=== PATIENT | female | born 1955 | race Caucasian/White ===

== ENCOUNTER → 2016-06-06 | Outpatient (REF) | payer BC ==
[~2016-06-06] MED LIST: ASPI81TA85 PO; AUGM500T34 PO; AUGM875T27 PO; EXCETAB80 PO; OCEA0.65; OMEP40CA2 PO; PRIL20CA PO; TYLE325T5 PO; ZEST10TA4 PO; ZOCO5TAB PO
== END ==
LOC: M SFHCLERA 11:18
PROVIDERS: ATTEND Family Medicine
DX: Z12.4 Encounter for screening for malignant neoplasm of cervix (principal); R87.5 Abnormal microbiological findings in specimens from female genital organs

== ENCOUNTER → 2016-09-08 | Outpatient (CLI) | payer BC ==
--- NOTE | 2016-09-08 17:50 | REP ---
ORBIT COMPLETE: REASON: Contusion on the left. PRIORS: None. Limited plain film examination of the orbits shows no evidence of an acute fracture or destructive osseous lesion. It should be stated with certainty that CT is a gold standard for imaging facial bone fractures and should be considered at this time. Signed by Pk Mike DO 09/08/2016 07:10 P
--- NOTE | 2016-09-08 17:55 | REP ---
LEFT HAND: REASON: Swelling. No trauma. Mild to moderate degenerative changes are seen throughout the Intradigital joints. Small marginal osteophytes are seen involving the DIP joints throughout the digits and PIP joints of digits 4 and 5. There is a flake like radiodensity adjacent and proximal to the medial base of the middle phalanx of the 3rd digit without associated soft-tissue swelling. This might represent chronic change but should be correlated clinically for point tenderness. IMPRESSION:Chronic changes and suspect chronic changes as described above. Signed by Pk Mike DO 09/08/2016 07:11 P
== END ==
LOC: M LRY 16:47
PROVIDERS: ATTEND Physician Assistant
DX: M79.89 Other specified soft tissue disorders (principal); S05.12XA Contusion of eyeball and orbital tissues, left eye, initial encounter; X58.XXXA Exposure to other specified factors, initial encounter; Y93.9 Activity, unspecified; Y92.9 Unspecified place or not applicable; Y99.8 Other external cause status

== ENCOUNTER → 2016-09-13 | Outpatient (CLI) | payer BC ==
--- NOTE | 2016-09-13 11:16 | REPMRS ---
Patient History The patient states she has not had a clinical breast exam in over a year. Patient is postmenopausal and had first child at age 33. No known family history of cancer. Digital Mammo Screening Bilat: September 13, 2016 - Exam #: [id number] Bilateral CC and MLO view(s) were taken. Technologist: Nicolle Armendariz, Technologist No prior studies available for comparison. FINDINGS: There are scattered fibroglandular densities. There is no evidence of dominant mass, architectural distortion, or clustered microcalcification typical of malignancy. ASSESSMENT: BI-RADS/ACR category 1 mammogram. Negative. Recommendation Routine screening mammogram of both breasts in 1 year (for women over age 40). This mammogram was interpreted with the aid of an FDA-approved computer-aided dectection system. Electronically Signed By: Evelio Mathis MD 09/13/16 [id number]
== END ==
LOC: M RAD 09:25
PROVIDERS: ATTEND Family Medicine
DX: Z12.31 Encounter for screening mammogram for malignant neoplasm of breast (principal)

== ENCOUNTER → 2016-11-10 | Outpatient (CLI) | payer BC, SELFPAY ==
--- NOTE | 2016-11-10 11:58 | REP ---
Low-dose lung screening CT without IV contrast: Scan is performed without IV contrast. Images are presented at lung windowing only. There are no nodules or masses. There are no infiltrates or effusions. There are occasional bulla, predominantly subpleural. Impression: Category 1 low-dose screening lung CT. The recommendation is for annual low-dose screening lung CT surveillance. Signed by Jonn Rodriguez MD 11/10/2016 11:50 A
== END ==
LOC: M RAD 10:59
PROVIDERS: ATTEND Family Medicine
DX: Z12.2 Encounter for screening for malignant neoplasm of respiratory organs (principal); F17.200 Nicotine dependence, unspecified, uncomplicated

== ENCOUNTER → 2017-02-19 | Outpatient (REF) | payer BC ==
[~2017-02-19] MED LIST changes: +AMLO10TA2 PO; +ATOR40TA75 PO; +CITA20TA4 PO; +COLA100C5 PO; +FLON1SPR; +OMEP20CA3 PO; +OXYC1TAB23 PO
[2017-02-19 11:56] LABS: BASO # 0.1 10^3/uL (0.0-0.2); BASO % 0.9 % (0.0-1.0); EOS # 0.2 10^3/uL (0.0-0.50); EOS % 2.2 % (0.0-3.0); LYMPH # 1.7 10^3/uL (1.5-4.5); LYMPH % 21.5 % (24.0-44.0); MEAN CORPUSCULAR HEMOGLOBIN 32.1 pg (27.0-33.0); MEAN CORPUSCULAR HGB CONC 33.9 g/dl (32.0-36.5); MEAN CORPUSCULAR VOLUME 94.8 fl (80.0-96.0); MONO # 0.7 10^3/uL (0.0-0.8); MONO % 8.4 % (0.0-5.0); NEUTROPHILS # 5.1 10^3/uL (1.8-7.7); NEUTROPHILS % 66.5 % (36.0-66.0); PLATELET COUNT, AUTOMATED 313 10^3/uL (150-450); RED CELL DISTRIBUTION WIDTH 12.8 % (11.5-14.5); WHITE BLOOD COUNT 7.7 10^3/uL (4.0-10.0)
[2017-02-19 12:26] LABS: ALBUMIN 3.8 GM/DL (3.2-5.2); ALBUMIN/GLOBULIN RATIO 1.31 (1.00-1.93); ALKALINE PHOSPHATASE 111 U/L (45-117); ALT/SGPT 28 U/L (12-78); ANION GAP 9 MEQ/L (8-16); AST/SGOT 14 U/L (15-37); BILIRUBIN,TOTAL 0.5 MG/DL (0.2-1.0); BLOOD UREA NITROGEN 17 MG/DL (7-18); CARBON DIOXIDE LEVEL 26 MEQ/L (21-32); CHLORIDE LEVEL 107 MEQ/L (98-107); CREATININE FOR GFR 0.67 MG/DL (0.55-1.02); FREE T4 1.01 NG/DL (0.76-1.46); GLOMERULAR FILTRATION RATE > 60.0 (>51); GLUCOSE, FASTING 93 MG/DL (70-105); POTASSIUM SERUM 3.8 MEQ/L (3.5-5.1); SODIUM LEVEL 142 MEQ/L (136-145); TOTAL PROTEIN 6.7 GM/DL (6.4-8.2)
== END ==
LOC: M SFHCLERA 09:51
PROVIDERS: ATTEND Family Medicine
DX: R53.83 Other fatigue (principal)

== ENCOUNTER 2017-03-16 08:14 | Day surgery (SDC) | payer BC ==
[~2017-03-16] VITALS: Ht 157.5 cm; Wt 47.2 kg
[2017-03-16] VITALS (7 sets, daily range): BP systolic 112–146; BP diastolic 53–74
[~2017-03-16 08:14] MED LIST changes: -COLA100C5 PO; -OXYC1TAB23 PO
[2017-03-16] MEDS ORDERED: VASOPRESSIN INJ 20 UNITS/ML VIAL As Ordered ONE (08:29)
[2017-03-16] MEDS ORDERED: LR 1,000 ML IV SCH ×2 (08:30→13:45)
[2017-03-16 08:49] LABS: MEAN CORPUSCULAR HEMOGLOBIN 31.9 pg (27.0-33.0); MEAN CORPUSCULAR HGB CONC 33.9 g/dl (32.0-36.5); MEAN CORPUSCULAR VOLUME 94.2 fl (80.0-96.0); PLATELET COUNT, AUTOMATED 269 10^3/uL (150-450); RED CELL DISTRIBUTION WIDTH 12.9 % (11.5-14.5); WHITE BLOOD COUNT 6.9 10^3/uL (4.0-10.0)
[2017-03-16] MEDS ORDERED: fentaNYL 250 MCG/5 ML INJECTION (J3010) As Ordered ONE (09:31)
[2017-03-16] MEDS ORDERED: MIDAZOLAM INJ 2 MG/2 ML VIAL (J2250) As Ordered ONE (09:31)
[2017-03-16] MEDS ORDERED: KETAMINE HCL 200 MG/20 ML VIAL As Ordered ONE ×2 (09:31→12:45)
[2017-03-16] MEDS ORDERED: METHYLENE BLUE 0.5% (5MG/ML) 10 ML AMP (PROVAYBLUE)(Q9968 PER 1MG) As Ordered ONE (10:45)
[2017-03-16] MEDS ORDERED: GLYCOPYRROLATE INJ 0.2 MG/ML 2 ML VIAL As Ordered ONE (12:46)
[2017-03-16] MEDS ORDERED: dexameTHASONE 4 MG/ML 1ML VIAL (J1100) As Ordered ONE (12:46)
[2017-03-16] MEDS ORDERED: ePHEDrine SULFATE 25 MG/5 ML(5MG/ML) SYRINGE As Ordered ONE (12:46)
[2017-03-16] MEDS ORDERED: PROPOFOL 200 MG/20 ML VIAL As Ordered ONE (12:46)
[2017-03-16] MEDS ORDERED: ONDANSETRON 4MG/2ML VIAL (J2405) As Ordered ONE (12:46)
[2017-03-16] MEDS ORDERED: KETOROLAC 60 MG/2 ML VIAL (J1885) As Ordered ONE (12:46)
[2017-03-16] MEDS ORDERED: NEOSTIGMINE 10 MG/10 ML VIAL (J2710) As Ordered ONE (12:46)
[2017-03-16] MEDS ORDERED: ROCURONIUM BROMIDE 50 MG/5 ML VIAL/SYRINGE As Ordered ONE (12:46)
[2017-03-16] MEDS ORDERED: FUROSEMIDE 100 MG/10 ML VIAL (J1940) As Ordered ONE (12:47)
[2017-03-16] MEDS ORDERED: fentaNYL 100 MCG/2 ML INJECTION (J3010) IV PRN (13:45)
[2017-03-16] MEDS ORDERED: PERCOCET 5MG/325MG TAB PO PRN ×3 (13:45→14:00)
--- NOTE | 2017-03-16 13:59 | REP ---
KUB ONE VIEW: HISTORY: Foreign body. The upper abdomen is not seen. A small amount of air is present in small and large intestine. There are no air fluid levels or dilated loops of intestine. There is no pneumoperitoneum. Several small radiopaque densities consistent with tablets are present in the abdomen. There is no metallic foreign body. IMPRESSION: Nonspecific bowel gas pattern. Signed by Rashid Sales MD 03/16/2017 02:08 P
[2017-03-16] MEDS ORDERED: ONDANSETRON 4MG/2ML VIAL (J2405) IV PRN (14:00)
[2017-03-16] MEDS ORDERED: MORPHINE 4 MG/ML 1ML SYRINGE IV PRN (14:00)
[2017-03-16] MEDS ORDERED: OXYC1TAB23 PO (15:54)
[2017-03-16] MEDS ORDERED: KETOROLAC 30 MG/ML VIAL (J1885) IV PRN (19:00)
[2017-03-16] MEDS: DOCUSATE SODIUM 100 MG CAP PO SCH (20:06)
--- NOTE | 2017-03-16 21:07 | RO ---
DATE OF PROCEDURE: 03/16/2017 PREPROCEDURE DIAGNOSES: Symptomatic pelvic prolapse. Uterine prolapse. Cystocele. POSTPROCEDURE DIAGNOSES: Symptomatic pelvic prolapse. Uterine prolapse. Cystocele. PROCEDURE: Total vaginal hysterotomy. Anterior vaginal repair, Mei culdoplasty, cystoscopy. SURGEON: Rashid Mcintosh MD INSTRUMENT OPERATOR: Yessenia Georges MD ANESTHESIA: General endotracheal. ESTIMATED BLOOD LOSS: 100 mL. URINE OUTPUT: 200 mL. FLUIDS: 1900 mL. FINDINGS: Small uterus with no adhesions. Normal adnexa. Grade 3 uterine prolapse. Grade 3 bladder prolapse. DESCRIPTION OF PROCEDURE: Operative summary: The patient was taken to the operating room where general endotracheal anesthesia was induced. She was prepped and draped in a sterile fashion in the dorsal lithotomy position. The anterior and posterior lips of the cervix were grasped with a tenaculum. Vaginal mucosa overlying the cervix was circumscribed with scalpel. The anterior vaginal mucosa was dissected off the cervix with a combination of blunt and sharp dissection. The anterior cul-de-sac was entered sharply. Posterior cul-de-sac was entered sharply. Uterosacral ligaments were grasped with Yumi clamps, incised and suture ligated. A series of bites were taken parallel to the body of the uterus. Each successive bite was incised and suture ligated. Specimen including the uterus and cervix was removed. Allis clamps were used to grasp the anterior vaginal cuff. Incision was made in the midline. The bladder was dissected off the vaginal mucosa with sharp dissection. Linear incision created in the anterior vagina. Plicating sutures were placed in the lateral margins of the bladder. Two successive sutures were placed. Mei culdoplasty was performed in the following fashion. #0 Vicryl was placed through the posterior vaginal cuff. The left uterosacral ligament was grasped with a suture. The posterior peritoneum was incorporated and then the right uterosacral ligament was incorporated. This exited through the vagina adjacent to the entry point. Vaginal cuff was closed with #0 Vicryl in a running fashion. Mei suture was tied into place. Cystoscopy was performed using a 70 degrees cystoscope. The patient received Methylene blue dye intravenously. Ureteral jets could not be confirmed on either side. There was concern for kinking of the ureters particularly on the right side. It appeared there was probably a jet on the left side. Decision was made to take down the Mei's culdoplasty suture and the vaginal cuff and the anterior repair. Once this was removed, bilateral ureteral jets were identified. The anterior repair was again closed, just not as tightly as before with two interrupted sutures of #0 Vicryl. Excess vaginal mucosa had already been excised and the vaginal cuff was closed in a running fashion. Mei culdoplasty suture was also repeated in the same fashion as described above, just not placed as high as previously. The vaginal cuff was closed and the Mei's stitch was tied into place. Cystoscopy was again performed. Bilateral ureteral jets were identified. All instruments were removed and Hernandez catheter was replaced. Sponge, instrument and needle counts were correct. The patient was extubated and went to recovery.
[2017-03-17] VITALS: BP 130/68
[2017-03-17 04:00] VITALS: BP 130/73
[2017-03-17 06:13] LABS: MEAN CORPUSCULAR HEMOGLOBIN 31.6 pg (27.0-33.0); MEAN CORPUSCULAR HGB CONC 33.1 g/dl (32.0-36.5); MEAN CORPUSCULAR VOLUME 95.6 fl (80.0-96.0); PLATELET COUNT, AUTOMATED 282 10^3/uL (150-450); RED CELL DISTRIBUTION WIDTH 12.9 % (11.5-14.5); WHITE BLOOD COUNT 13.5 10^3/uL (4.0-10.0)
[2017-03-17] MEDS ORDERED: COLA100C5 PO (08:53)
[2017-03-17] MEDS: DOCUSATE SODIUM 100 MG CAP PO SCH (09:10)
== END 2017-03-17 09:20 | disposition home or self-care (01) ==
LOC: M SDC 08:14 → M PED 14:55 → M SDC 03-17 09:20
PROVIDERS: ATTEND Specialist
DX: N81.4 Uterovaginal prolapse, unspecified (principal); N81.10 Cystocele, unspecified; K21.9 Gastro-esophageal reflux disease without esophagitis; I10 Essential (primary) hypertension; E78.00 Pure hypercholesterolemia, unspecified; M12.9 Arthropathy, unspecified; F41.9 Anxiety disorder, unspecified; F32.9 Major depressive disorder, single episode, unspecified; R32 Unspecified urinary incontinence; Z79.899 Other long term (current) drug therapy; Z79.82 Long term (current) use of aspirin; Z86.73 Personal history of transient ischemic attack (TIA), and cerebral infarction without residual deficits; Z72.0 Tobacco use
CPT/HCPCS: 36415; 57240; 57283; 58290; 74000; 85027; 86850; 86900; 86901; 88305; 96374; 96375; J0690; J1100; J1885; J1940; J2250; J2405; J2710; J3010; Q9968

== ENCOUNTER → 2017-11-26 | Outpatient (REF) | payer OTHER, MEDICAID ==
[2017-11-26 17:22] LABS: BASO # 0.1 10^3/uL (0.0-0.2); BASO % 0.8 % (0.0-1.0); EOS # 0.2 10^3/uL (0.0-0.50); EOS % 3.1 % (0.0-3.0); HEMATOCRIT 38.2 % (36.0-47.0); HEMOGLOBIN 13.1 g/dl (12.0-15.5); IMMATURE GRANULOCYTE % 0.5 % (0-3.0); LYMPH # 1.9 10^3/uL (1.5-4.5); LYMPH % 25.1 % (24.0-44.0); MEAN CORPUSCULAR HEMOGLOBIN 32.3 pg (27.0-33.0); MEAN CORPUSCULAR HGB CONC 34.3 g/dl (32.0-36.5); MEAN CORPUSCULAR VOLUME 94.1 fl (80.0-96.0); MONO # 0.8 10^3/uL (0.0-0.8); MONO % 10.6 % (0.0-5.0); NEUTROPHILS # 4.4 10^3/uL (1.8-7.7); NEUTROPHILS % 59.9 % (36.0-66.0); PLATELET COUNT, AUTOMATED 289 10^3/uL (150-450); RED BLOOD COUNT 4.06 10^6/uL (4.00-5.40); RED CELL DISTRIBUTION WIDTH 12.9 % (11.5-14.5); WHITE BLOOD COUNT 7.4 10^3/uL (4.0-10.0)
[2017-11-26 17:39] LABS: ESTIMATED AVERAGE GLUCOSE 114 MG/DL (60-110); HEMOGLOBIN A1c 5.6 %
[2017-11-26 18:38] LABS: VITAMIN B12 LEVEL 585 PG/ML
[2017-11-26 18:42] LABS: ALBUMIN 3.9 GM/DL (3.2-5.2); ALBUMIN/GLOBULIN RATIO 1.18 (1.00-1.93); ALKALINE PHOSPHATASE 133 U/L (45-117); ALT/SGPT 55 U/L (12-78); ANION GAP 8 MEQ/L (8-16); AST/SGOT 28 U/L (7-37); BILIRUBIN,TOTAL 0.5 MG/DL (0.2-1.0); BLOOD UREA NITROGEN 17 MG/DL (7-18); CALCIUM LEVEL 8.8 MG/DL (8.8-10.2); CARBON DIOXIDE LEVEL 25 MEQ/L (21-32); CHLORIDE LEVEL 108 MEQ/L (98-107); CREATININE FOR GFR 0.66 MG/DL (0.55-1.30); GLOMERULAR FILTRATION RATE > 60.0 (>45); GLUCOSE, FASTING 82 MG/DL (70-100); SODIUM LEVEL 141 MEQ/L (136-145); TOTAL PROTEIN 7.2 GM/DL (6.4-8.2)
== END ==
LOC: M SFHCLERA 14:57
DX: R26.9 Unspecified abnormalities of gait and mobility (principal); Z13.1 Encounter for screening for diabetes mellitus

== ENCOUNTER → 2017-12-13 | Outpatient (CLI) | payer MEDICAID, OTHER | LOC: M RAD 14:47 | DX: I72.0 Aneurysm of carotid artery (principal); I65.23 Occlusion and stenosis of bilateral carotid arteries | CPT/HCPCS: 93880 ==

== ENCOUNTER → 2017-12-24 | Outpatient (CLI) | payer OTHER | LOC: M RAD 07:40 | DX: Z12.2 Encounter for screening for malignant neoplasm of respiratory organs (principal); F17.200 Nicotine dependence, unspecified, uncomplicated; J43.9 Emphysema, unspecified | CPT/HCPCS: G0297 ==

== ENCOUNTER → 2018-01-08 | Outpatient (CLI) | payer OTHER | LOC: M RAD 13:08 | DX: I67.1 Cerebral aneurysm, nonruptured (principal) | CPT/HCPCS: 70544 ==

== ENCOUNTER 2018-02-28 09:15 | Day surgery (SDC) | payer OTHER ==
[2018-02-28] MEDS: NS 1,000 ML IV (07:00)
[2018-02-28] MEDS ORDERED: PROPOFOL 500 MG/50 ML VIAL As Ordered (10:14)
[2018-02-28] MEDS ORDERED: LIDOCAINE 2% INJ 100 MG/5 ML SDV (FOR ANES.) As Ordered (10:14)
[2018-02-28] MEDS ORDERED: fentaNYL 100 MCG/2 ML INJECTION (J3010) As Ordered (11:11)
== END 2018-02-28 12:44 | disposition home or self-care (01) ==
LOC: M OPP 09:15
DX: Z12.11 Encounter for screening for malignant neoplasm of colon (principal); D12.3 Benign neoplasm of transverse colon; D12.2 Benign neoplasm of ascending colon; D12.0 Benign neoplasm of cecum; K57.30 Diverticulosis of large intestine without perforation or abscess without bleeding; K64.8 Other hemorrhoids; R12 Heartburn; K22.8 Other specified diseases of esophagus; I10 Essential (primary) hypertension; I67.1 Cerebral aneurysm, nonruptured; E78.5 Hyperlipidemia, unspecified; K21.9 Gastro-esophageal reflux disease without esophagitis; Z86.69 Personal history of other diseases of the nervous system and sense organs; F17.210 Nicotine dependence, cigarettes, uncomplicated; Z79.82 Long term (current) use of aspirin; Z79.899 Other long term (current) drug therapy
CPT/HCPCS: 45385

== ENCOUNTER → 2019-01-31 | Outpatient (CLI) | payer OTHER ==
[~2019-01-31] MED LIST changes: +ACET1TAB55 PO; -AMLO10TA2 PO; +AMLO10TA5 PO; +CAFF200T PO; +CHAN1PAK13 PO; -CITA20TA4 PO; +CITA20TA6 PO; +COLA100C5 PO; -OMEP20CA3 PO; +OMEP20CA4 PO; +OXYC1TAB23 PO; +PANT40TA3 PO
--- NOTE | 2019-01-31 13:49 | REP ---
Clinical: Lung screening. History smoking. Comparison: 12/24/2017, 11/10/2016 Technique: Axial low-dose noncontrast images from the thoracic inlet to the upper abdomen using lung screening technique. Findings: The lung martin are well-aerated mild scattered chronic changes primarily involving the upper lung zones and medial right middle lobe remains stable. No consolidation, significant nodule or mass lesion is appreciated. No pleural effusion/reaction or pneumothorax. Tracheobronchial tree is patent. Mediastinum demonstrates mild atherosclerotic changes of the coronary arteries without cardiomegaly. Impression: Lung-RADS category I. No nodule or suspicious abnormality. Management recommendations include annual low-dose CT evaluation. Electronically Signed by Willy Martinez MD 01/31/2019 01:41 P
== END ==
LOC: M RAD 13:25
PROVIDERS: ATTEND Family Medicine
DX: Z12.2 Encounter for screening for malignant neoplasm of respiratory organs (principal); F17.200 Nicotine dependence, unspecified, uncomplicated

== ENCOUNTER → 2019-03-27 | Outpatient (RCR) | payer OTHER | LOC: M PT 03-21 08:06 | PROVIDERS: ATTEND Student in an Organized Health Care Education/Training Program | DX: S82.141D Displaced bicondylar fracture of right tibia, subsequent encounter for closed fracture with routine healing (principal) ==

== ENCOUNTER 2019-04-23 12:32 | Outpatient (RCR) | payer OTHER | END 2019-04-26 | LOC: M PT 12:32 | PROVIDERS: ATTEND Student in an Organized Health Care Education/Training Program | DX: Z47.89 Encounter for other orthopedic aftercare (principal); S82.141D Displaced bicondylar fracture of right tibia, subsequent encounter for closed fracture with routine healing; X58.XXXD Exposure to other specified factors, subsequent encounter; Y92.9 Unspecified place or not applicable; Y93.9 Activity, unspecified; Y99.9 Unspecified external cause status ==

== ENCOUNTER → 2019-05-06 | Outpatient (REF) | payer OTHER ==
[~2019-05-06] MED LIST changes: +OMEP-172 PO; -OMEP20CA4 PO
[2019-05-06 18:09] LABS: BASO # 0.1 10^3/uL (0.0-0.2); BASO % 1.1 % (0.0-1.0); EOS # 0.2 10^3/uL (0.0-0.5); HEMATOCRIT 42.7 % (36.0-47.0); HEMOGLOBIN 13.5 g/dl (12.0-15.5); LYMPH # 1.4 10^3/uL (1.5-5.0); LYMPH % 26.4 % (24.0-44.0); MEAN CORPUSCULAR HGB CONC 31.6 g/dl (32.0-36.5); MEAN CORPUSCULAR VOLUME 97.9 fl (80.0-96.0); MONO # 0.6 10^3/uL (0.0-0.8); MONO % 10.2 % (0.0-5.0); NEUTROPHILS # 3.2 10^3/uL (1.5-8.5); NEUTROPHILS % 58.7 % (36.0-66.0); PLATELET COUNT, AUTOMATED 326 10^3/uL (150-450); RED BLOOD COUNT 4.36 10^6/uL (4.00-5.40); WHITE BLOOD COUNT 5.4 10^3/uL (4.0-10.0)
[2019-05-06 18:22] LABS: ALT/SGPT 29 U/L (12-78); BILIRUBIN,TOTAL 0.5 MG/DL (0.2-1.0); BLOOD UREA NITROGEN 18 MG/DL (7-18); C REACTIVE PROTEIN QUANTITATIV 0.31 MG/DL (0.00-0.30); CALCIUM LEVEL 9.3 MG/DL (8.8-10.2); CARBON DIOXIDE LEVEL 25 MEQ/L (21-32); CHLORIDE LEVEL 109 MEQ/L (98-107); CREATININE FOR GFR 0.81 MG/DL (0.55-1.30); FREE T4 0.92 NG/DL (0.76-1.46); GLOMERULAR FILTRATION RATE > 60.0 (>45); GLUCOSE, FASTING 93 MG/DL (70-100); POTASSIUM SERUM 3.7 MEQ/L (3.5-5.1); SODIUM LEVEL 140 MEQ/L (136-145); TOTAL PROTEIN 7.3 GM/DL (6.4-8.2)
[2019-05-06 18:24] LABS: FOLATE 11.8 NG/ML; VITAMIN B12 LEVEL 712 PG/ML
== END ==
LOC: M SFHCLERA 11:39
PROVIDERS: ATTEND Family Medicine
DX: R42 Dizziness and giddiness (principal)

== ENCOUNTER 2019-05-12 12:26 | Outpatient (RCR) | payer OTHER | END 2019-05-27 | LOC: M PT 12:26 | PROVIDERS: ATTEND Student in an Organized Health Care Education/Training Program | DX: Z47.89 Encounter for other orthopedic aftercare (principal); S82.141D Displaced bicondylar fracture of right tibia, subsequent encounter for closed fracture with routine healing; X58.XXXD Exposure to other specified factors, subsequent encounter; Y92.9 Unspecified place or not applicable; Y93.9 Activity, unspecified; Y99.9 Unspecified external cause status ==

== ENCOUNTER → 2019-05-16 | Outpatient (CLI) | payer OTHER ==
[~2019-05-16] MED LIST changes: +PROHANCE 279.3MG/ML 5ML VIAL (A9576) As Ordered ONE
--- NOTE | 2019-05-17 17:38 | REPVR ---
PROCEDURE INFORMATION: Exam: MR Head Without and With Contrast Exam date and time: 05/16/2019 7:11 PM Age: 63 years old Clinical indication: Walking, difficulty; Additional info: Vertigo and gait instability TECHNIQUE: Imaging protocol: MR of the head without and with intravenous contrast. Contrast material: PROHANCE; Contrast volume: 10 ml; Contrast route: IV; COMPARISON: MRA BRAIN W/O CONTRAST 01/08/2018 2:12 PM FINDINGS: Brain: Foci T2 lengthening demonstrated in both thalami and external capsules, left greater than right. Finding of uncertain significance but can be demonstrated in metabolic abnormalities among other etiologies. Small foci of T2/FLAIR lengthening in left periventricular white matter with confluent signal changes in the periventricular white matter. Finally there has been interval increase in low signal in the basal ganglia bilaterally extending inferiorly into the midbrain. Stable lacunar infarct left caudate nucleus. Brainstem: Increased T2, FLAIR signal demonstrated in the ted. Ventricles: Normal. No ventriculomegaly. Bones/joints: Unremarkable. Soft tissues: Unremarkable. Sinuses: Normal as visualized. No acute sinusitis. Mastoid air cells: Normal as visualized. No mastoid effusion. Orbits: Unremarkable. Internal carotid arteries: Left cavernous carotid artery subcentimeter aneurysm as previously reported again demonstrated although seen to best advantage on prior MRA. Other findings: No abnormal enhancement demonstrated. IMPRESSION: 1. Findings compatible with chronic ischemic change in the external capsules bilaterally, both thalami and ted which has progressed in comparison to the prior study. 2. Findings compatible with increase mineralization in the basal ganglia bilaterally extending into the midbrain (?Parkinson's disease). 3. 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 Electronically signed by: Bill Cardona On 05/17/2019 17:38:03 PM
== END ==
LOC: M RAD 17:35
PROVIDERS: ATTEND Family Medicine
DX: R42 Dizziness and giddiness (principal); R26.81 Unsteadiness on feet
CPT/HCPCS: 70553; A9576

== ENCOUNTER 2019-06-23 09:21 | Outpatient (RCR) | payer OTHER ==
[~2019-06-23 09:21] MED LIST changes: -OMEP-172 PO; +OMEP1CAP73 PO; -PROHANCE 279.3MG/ML 5ML VIAL (A9576) As Ordered ONE
== END 2019-06-27 ==
LOC: M PT 09:21
PROVIDERS: ATTEND Family Medicine
DX: S82.143D Displaced bicondylar fracture of unspecified tibia, subsequent encounter for closed fracture with routine healing (principal); M65.271 Calcific tendinitis, right ankle and foot; X58.XXXD Exposure to other specified factors, subsequent encounter; Y92.9 Unspecified place or not applicable

== ENCOUNTER 2019-07-15 08:41 | Outpatient (RCR) | payer OTHER | END 2019-07-26 | disposition home or self-care (01) | LOC: M PT 08:41 | PROVIDERS: ATTEND Family Medicine | DX: S82.141D Displaced bicondylar fracture of right tibia, subsequent encounter for closed fracture with routine healing (principal); M65.271 Calcific tendinitis, right ankle and foot; X58.XXXD Exposure to other specified factors, subsequent encounter; Y92.9 Unspecified place or not applicable; Y93.9 Activity, unspecified; Y99.9 Unspecified external cause status ==

== ENCOUNTER 2019-08-07 08:12 | Outpatient (RCR) | payer OTHER | END 2019-08-26 | LOC: M PT 08:12 | PROVIDERS: ATTEND Orthopaedic Surgery | DX: Z51.89 Encounter for other specified aftercare (principal); M76.71 Peroneal tendinitis, right leg; S93.401A Sprain of unspecified ligament of right ankle, initial encounter ==

== ENCOUNTER → 2019-10-29 | Outpatient (CLI) | payer OTHER ==
[2019-10-29 12:03] LABS: BASO # 0.1 10^3/uL (0.0-0.2); BASO % 1.1 % (0.0-1.0); EOS # 0.2 10^3/uL (0.0-0.5); EOS % 2.3 % (0.0-3.0); HEMOGLOBIN 12.3 g/dl (12.0-15.5); LYMPH % 35.5 % (24.0-44.0); MEAN CORPUSCULAR HEMOGLOBIN 31.5 pg (27.0-33.0); MEAN CORPUSCULAR HGB CONC 33.2 g/dl (32.0-36.5); MEAN CORPUSCULAR VOLUME 94.6 fl (80.0-96.0); MONO # 0.9 10^3/uL (0.0-0.8); NEUTROPHILS # 4.3 10^3/uL (1.5-8.5); NEUTROPHILS % 50.5 % (36.0-66.0); PLATELET COUNT, AUTOMATED 329 10^3/uL (150-450); RED BLOOD COUNT 3.91 10^6/uL (4.00-5.40); WHITE BLOOD COUNT 8.5 10^3/uL (4.0-10.0)
[2019-10-29 12:15] LABS: INR 0.98; PROTHROMBIN TIME 12.7 SECONDS (11.8-14.0)
[2019-10-29 12:16] LABS: PARTIAL THROMBOPLASTIN TIME 23.6 SECONDS (25.0-38.4)
[2019-10-29 12:32] LABS: BLOOD UREA NITROGEN 18 MG/DL (7-18); CALCIUM LEVEL 9.2 MG/DL (8.8-10.2); CARBON DIOXIDE LEVEL 27 MEQ/L (21-32); CHLORIDE LEVEL 107 MEQ/L (98-107); CREATININE FOR GFR 0.79 MG/DL (0.55-1.30); GLOMERULAR FILTRATION RATE > 60.0 (>45); GLUCOSE, FASTING 77 MG/DL (70-100); POTASSIUM SERUM 3.9 MEQ/L (3.5-5.1); SODIUM LEVEL 142 MEQ/L (136-145)
== END ==
LOC: M LRY 09:37
PROVIDERS: ATTEND Student in an Organized Health Care Education/Training Program
DX: I67.1 Cerebral aneurysm, nonruptured (principal)

== ENCOUNTER → 2020-01-07 | Outpatient (REF) | payer OTHER ==
[~2020-01-07] MED LIST changes: -AMLO10TA5 PO; +AMLO1TAB25 PO; +ASPI81TA86 PO; +PANT40TA29 PO; -PANT40TA3 PO
[2020-02-09 09:42] LABS: BASO # 0.1 10^3/uL (0.0-0.2); BASO % 1.4 % (0.0-1.0); EOS # 0.2 10^3/uL (0.0-0.5); HEMATOCRIT 39.9 % (36.0-47.0); HEMOGLOBIN 13.1 g/dl (12.0-15.5); LYMPH # 1.5 10^3/uL (1.5-5.0); LYMPH % 20.9 % (24.0-44.0); MEAN CORPUSCULAR HEMOGLOBIN 31.1 pg (27.0-33.0); MEAN CORPUSCULAR HGB CONC 32.8 g/dl (32.0-36.5); MEAN CORPUSCULAR VOLUME 94.8 fl (80.0-96.0); MONO # 0.6 10^3/uL (0.0-0.8); MONO % 8.9 % (0.0-5.0); NEUTROPHILS # 4.5 10^3/uL (1.5-8.5); NEUTROPHILS % 65.2 % (36.0-66.0); PLATELET COUNT, AUTOMATED 321 10^3/uL (150-450); RED BLOOD COUNT 4.21 10^6/uL (4.00-5.40); WHITE BLOOD COUNT 6.9 10^3/uL (4.0-10.0)
[2020-02-09 09:43] LABS: INR 0.96
[2020-02-22 06:25] LABS: ALT/SGPT 26 U/L (12-78); BILIRUBIN,TOTAL 0.6 MG/DL (0.2-1.0); BLOOD UREA NITROGEN 18 MG/DL (7-18); CALCIUM LEVEL 9.5 MG/DL (8.8-10.2); CARBON DIOXIDE LEVEL 26 MEQ/L (21-32); CHLORIDE LEVEL 108 MEQ/L (98-107); CREATININE FOR GFR 0.98 MG/DL (0.55-1.30); GLOMERULAR FILTRATION RATE > 60.0 (>45); GLUCOSE, FASTING 93 MG/DL (70-100); POTASSIUM SERUM 4.2 MEQ/L (3.5-5.1); SODIUM LEVEL 139 MEQ/L (136-145); TOTAL PROTEIN 7.2 GM/DL (6.4-8.2)
== END ==
LOC: M SFHCLERA 08:37
PROVIDERS: ATTEND Family Medicine
DX: R04.0 Epistaxis (principal)

== ENCOUNTER → 2020-01-26 | Outpatient (RCR) | payer OTHER | END | disposition home or self-care (01) | LOC: M PT 01-05 09:30 | PROVIDERS: ATTEND Physician Assistant | DX: M76.11 Psoas tendinitis, right hip (principal) ==

== ENCOUNTER → 2020-02-25 | Outpatient (RCR) | payer OTHER | LOC: M PT 01-28 09:37 | PROVIDERS: ATTEND Physician Assistant | DX: M76.11 Psoas tendinitis, right hip (principal); M25.561 Pain in right knee ==

== ENCOUNTER 2020-03-15 10:07 | Outpatient (RCR) | payer OTHER | END 2020-03-27 | LOC: M PT 10:07 | PROVIDERS: ATTEND Physician Assistant | DX: M76.11 Psoas tendinitis, right hip (principal) ==

== ENCOUNTER → 2020-04-26 | Outpatient (RCR) | payer OTHER | LOC: M PT 03-31 09:08 | PROVIDERS: ATTEND Physician Assistant | DX: M76.11 Psoas tendinitis, right hip (principal) ==

== ENCOUNTER → 2020-05-04 | Outpatient (CLI) | payer OTHER ==
--- NOTE | 2020-05-04 10:47 | REP ---
INDICATION: SCREENING FOR LUNG CANCER PT NEEDS LABS AFTER CT. COMPARISON: Multiple prior screening chest CTs, the most recent of which is from January 31, 2019. The most remote is November 10, 2016.. TECHNIQUE: Low-dose screening chest CT with 3 mm lung window only axial images. FINDINGS: Vascular calcification is noted along the distribution of the coronary arteries unchanged. There is mild biapical bullous formation unchanged. No pulmonary mass lesion or significant pulmonary nodule is appreciated. No infiltrate or atelectasis is seen. IMPRESSION: Stable lung RADS category 1 findings. Repeat screening study recommended in 1 year. <Electronically signed by Evelio Mathis > 05/04/20 [id number]
[2020-05-04 11:35] LABS: ALT/SGPT 30 U/L (12-78); BILIRUBIN,TOTAL 0.2 MG/DL (0.2-1.0); BLOOD UREA NITROGEN 25 MG/DL (7-18); CALCIUM LEVEL 9.8 MG/DL (8.8-10.2); CARBON DIOXIDE LEVEL 25 MEQ/L (21-32); CHLORIDE LEVEL 110 MEQ/L (98-107); CHOLESTEROL LEVEL 194 MG/DL (<200); CHOLESTEROL RISK RATIO 3.403 (<5); CREATININE FOR GFR 0.92 MG/DL (0.55-1.30); GLOMERULAR FILTRATION RATE > 60.0 (>45); GLUCOSE, FASTING 103 MG/DL (70-100); HDL CHOLESTEROL 57 MG/DL (>40); LDL CHOLESTEROL 105 MG/DL (<100); NON-HDL-C 137 MG/DL; POTASSIUM SERUM 4.3 MEQ/L (3.5-5.1); SODIUM LEVEL 139 MEQ/L (136-145); TOTAL PROTEIN 7.4 GM/DL (6.4-8.2); TRIGLYCERIDES LEVEL 162 MG/DL (<150)
== END ==
LOC: M RAD 08:34
PROVIDERS: ATTEND Family Medicine
DX: Z12.2 Encounter for screening for malignant neoplasm of respiratory organs (principal); E78.5 Hyperlipidemia, unspecified
CPT/HCPCS: 36415; 80053; 80061; G0297

== ENCOUNTER 2020-05-06 09:30 | Outpatient (RCR) | payer OTHER | END 2020-05-27 | LOC: M PT 09:30 | PROVIDERS: ATTEND Physician Assistant | DX: Z47.89 Encounter for other orthopedic aftercare (principal); M76.11 Psoas tendinitis, right hip ==

== ENCOUNTER 2020-06-23 15:03 | Outpatient (RCR) | payer OTHER | END 2020-06-27 | LOC: M PT 15:03 | PROVIDERS: ATTEND Physician Assistant | DX: M51.36 Other intervertebral disc degeneration, lumbar region (principal); M25.551 Pain in right hip ==

== ENCOUNTER 2020-07-01 09:12 | Outpatient (RCR) | payer OTHER | END 2020-07-25 | LOC: M PT 09:12 | PROVIDERS: ATTEND Physician Assistant | DX: G57.01 Lesion of sciatic nerve, right lower limb (principal) ==

== ENCOUNTER → 2020-08-03 | Outpatient (CLI) | payer OTHER ==
--- NOTE | 2020-08-03 10:26 | REP ---
INDICATION: DISC DEGENERATION, R/O HNP/STENOSIS LABS 1ST. COMPARISON: None. TECHNIQUE: Sagittal and axial T1 and T2-weighted scans are acquired in the usual fashion with and without fat saturation. Sequences include spin echo, turbo spin-echo, and STIR imaging sequences. FINDINGS: Cortical and medullary bone signal intensity are normal. Vertebral body heights are preserved in the lumbar spine. There is a degenerative grade 1 2 mm L3-4 spondylolisthesis due to degenerative disc disease. No spondylolysis is seen. Alignment is otherwise normal. The tip of the conus medullaris is normal in position and appearance at L1. No extra vertebral abnormality is observed. Axial and sagittal images at L1-2 and L2-3 show no evidence of disc protrusion, spinal stenosis, or foraminal encroachment. At L3-4, there is moderate osteoarthritic facet hypertrophy bilaterally. Degenerative disc narrowing is seen in there is diffuse disc bulging including bulging of the foraminal segments of the disc margin bilaterally at the L3-4 level. No birgit nerve root compression is appreciated. No central canal stenosis is seen. Midline AP dimension of the thecal sac at L3-4 is 11 mm. At L4-5, there is a broad-based right posterior and right foraminal disc protrusion producing mild right-sided neural foraminal narrowing. There is osteoarthritic facet and ligamentum flavum hypertrophy bilaterally at L4-5. The facet hypertrophy is little more prominent on the right. At L5-S1, there is bilateral facet hypertrophy. No other finding. IMPRESSION: Degenerative 2 mm grade 1 L3-4 spondylolisthesis. Diffuse disc bulging at L3-4. Moderate facet hypertrophy at 3 4 and 4 5. A right posterior and right foraminal broad-based disc protrusion is seen at L4-5. There is facet and ligamentum flavum hypertrophy at L4-5 bilaterally. <Electronically signed by Evelio Mathis > 08/03/20 [id number]
== END ==
LOC: M RAD 08:16
PROVIDERS: ATTEND Physician Assistant
DX: M51.36 Other intervertebral disc degeneration, lumbar region (principal); M51.26 Other intervertebral disc displacement, lumbar region

== ENCOUNTER → 2020-08-03 | Outpatient (CLI) | payer OTHER | LOC: M LAB 08:14 | PROVIDERS: ATTEND Family Medicine | DX: R74.8 Abnormal levels of other serum enzymes (principal) ==

== ENCOUNTER 2020-08-16 10:45 | Outpatient (RCR) | payer OTHER | END 2020-08-25 | LOC: M PT 10:45 | PROVIDERS: ATTEND Physician Assistant | DX: M51.16 Intervertebral disc disorders with radiculopathy, lumbar region (principal) ==

== ENCOUNTER 2020-09-08 09:05 | Outpatient (RCR) | payer OTHER | END 2020-09-24 | LOC: M PT 09:05 | PROVIDERS: ATTEND Physician Assistant | DX: M51.16 Intervertebral disc disorders with radiculopathy, lumbar region (principal) ==

== ENCOUNTER → 2020-10-18 | Outpatient (CLI) | payer OTHER ==
[2020-10-18 10:29] LABS: BASO # 0.1 10^3/uL (0.0-0.2); BASO % 1.1 % (0.0-1.0); EOS # 0.2 10^3/uL (0.0-0.5); EOS % 3.4 % (0.0-3.0); HEMATOCRIT 38.4 % (36.0-47.0); HEMOGLOBIN 12.6 g/dl (12.0-15.5); LYMPH # 1.1 10^3/uL (1.5-5.0); LYMPH % 17.3 % (24.0-44.0); MEAN CORPUSCULAR HEMOGLOBIN 31.5 pg (27.0-33.0); MEAN CORPUSCULAR HGB CONC 32.8 g/dl (32.0-36.5); MONO # 0.6 10^3/uL (0.0-0.8); MONO % 9.2 % (2.0-8.0); NEUTROPHILS # 4.4 10^3/uL (1.5-8.5); NEUTROPHILS % 68.4 % (36.0-66.0); PLATELET COUNT, AUTOMATED 295 10^3/uL (150-450); WHITE BLOOD COUNT 6.4 10^3/uL (4.0-10.0)
== END ==
LOC: M LAB 09:49
PROVIDERS: ATTEND Family Medicine
DX: G50.0 Trigeminal neuralgia (principal)

== ENCOUNTER → 2020-11-27 | Outpatient (CLI) | payer OTHER ==
[~2020-11-27] MED LIST changes: +ASPI-1; +BUPR150T12 PO; +CARB1TAB20 PO; +ECOT81TA5 PO; +ERGO500029; +GABA-282
== END ==
LOC: M LABSMTC 10:46
PROVIDERS: ATTEND Anesthesiology
DX: Z01.812 Encounter for preprocedural laboratory examination (principal); Z20.822 Contact with and (suspected) exposure to COVID-19

== ENCOUNTER 2020-12-02 08:24 | Day surgery (SDC) | payer OTHER ==
[~2020-12-02] VITALS: Ht 157.5 cm; Wt 50.8 kg
[~2020-12-02 08:24] MED LIST changes: +NS 1,000 ML IV ONE
--- NOTE | 2020-12-02 10:15 | ROOR ---
Patient Name: Marguerite Jensen Procedure Date: 12/02/2020 9:52 AM Date of : 1955 Age: 65 Room: [facility] Gender: Female Note Status: Finalized Procedure: Colonoscopy Indications: High risk colon cancer surveillance: Personal history of colonic polyps Providers: Aleksandar Rosenthal MD Referring MD: Reshma Bunch Md Requesting Provider: Medicines: Monitored Anesthesia Care Complications: No immediate complications. Procedure: Pre-Anesthesia Assessment: - The heart rate, respiratory rate, oxygen saturations, blood pressure, adequacy of pulmonary ventilation, and response to care were monitored throughout the procedure. The Colonoscope was introduced through the anus and advanced to the terminal ileum, with identification of the appendiceal orifice and IC valve. The colonoscopy was performed without difficulty. The patient tolerated the procedure well. The quality of the bowel preparation was good. Findings: The perianal and digital rectal examinations were normal. Three sessile polyps were found in the proximal descending colon and splenic flexure. The polyps were diminutive in size. These polyps were removed with a cold snare. Resection and retrieval were complete. The exam was otherwise without abnormality on direct and retroflexion views. Impression: - Three diminutive polyps in the proximal descending colon and at the splenic flexure, removed with a cold snare. Resected and retrieved. - The examination was otherwise normal on direct and retroflexion views. Recommendation: - Repeat colonoscopy in 5 years for surveillance. Procedure Code(s): --- Professional --- 25167, Colonoscopy, flexible; with removal of tumor(s), polyp(s), or other lesion(s) by snare technique Diagnosis Code(s): --- Professional --- K63.5, Polyp of colon Z86.010, Personal history of colonic polyps CPT copyright 2019 [employer]. All rights reserved. The codes documented in this report are preliminary and upon accountant supervisor review may be revised to meet current compliance requirements. Aleksandar Rosenthal MD Aleksandar Rosenthal MD 12/02/2020 10:14:36 AM Electronically signed by Aleksandar Rosenthal MD Number of Addenda: 0 Note Initiated On: 12/02/2020 9:52 AM Estimated Blood Loss: Estimated blood loss: none.
[2020-12-02] MEDS ORDERED: LIDOCAINE 2% 100MG/5ML SDV (FOR ANES.) As Ordered ONE (10:20)
[2020-12-02] MEDS ORDERED: propofoL 200 MG/20 ML VIAL As Ordered ONE (10:21)
[2020-12-02 10:35] VITALS: BP 138/80
== END 2020-12-02 10:47 | disposition home or self-care (01) ==
LOC: M OPP 08:24
PROVIDERS: ATTEND Internal Medicine Gastroenterology
DX: Z12.11 Encounter for screening for malignant neoplasm of colon (principal); Z86.010 Personal history of colon polyps; D12.3 Benign neoplasm of transverse colon; F17.210 Nicotine dependence, cigarettes, uncomplicated; Z79.82 Long term (current) use of aspirin; Z79.899 Other long term (current) drug therapy

== ENCOUNTER → 2020-12-14 | Outpatient (CLI) | payer OTHER ==
[~2020-12-14] MED LIST changes: -NS 1,000 ML IV ONE; +PROHANCE 279.3MG/ML 5ML VIAL As Ordered ONE
--- NOTE | 2020-12-14 23:19 | REPVR ---
PROCEDURE INFORMATION: Exam: MR Head Without and With Contrast Exam date and time: 12/14/2020 5:58 PM Age: 65 years old Clinical indication: Other: Trigeminal neuralgia of R side of face TECHNIQUE: Imaging protocol: MR of the head without and with intravenous contrast. Contrast material: PROHANCE; Contrast volume: 10 ml; Contrast route: INTRAVENOUS (IV); COMPARISON: MRI-Brain W/O FOLL BY WITH 05/16/2019 6:26 PM FINDINGS: Brain: Nonspecific T2/FLAIR hyperintensities of the periventricular and deep subcortical white matter and ted, most likely secondary to chronic small vessel ischemic change. No intracranial hemorrhage or extra-axial fluid collection. No evidence of mass effect or midline shift. No restricted diffusion to suggest acute infarct. Meckel's caves are clear. Cerebral ventricles: Prominence of the ventricles and sulci, likely attributed to parenchymal volume loss. Bones/joints: Unremarkable. Mastoid air cells: No mastoid effusion. Soft tissues: Unremarkable. IMPRESSION: 1. No acute intracranial pathology. 2. Chronic findings, as above. PROCEDURE INFORMATION: Exam: MR Orbit Without and With Contrast Exam date and time: 12/14/2020 5:58 PM Age: 65 years old Clinical indication: Other: Trigeminal neuralgia of R side of face TECHNIQUE: Imaging protocol: MR Orbit was performed without and with intravenous contrast. COMPARISON: MRI-Brain W/O FOLL BY WITH 05/16/2019 6:26 PM FINDINGS: Orbital cavity: Globes are intact. Optic nerves are normal. Optic tracts are normal. Intraconal fat is normal. Extraocular muscles are normal. No abnormal enhancement within the orbits. Paranasal sinuses: Unremarkable. No air-fluid levels. Soft tissues: Unremarkable. IMPRESSION: No acute findings in the orbits. Electronically signed by: Dexter Casiano On 12/14/2020 23:18:50 PM
== END ==
LOC: M RAD 11-15 16:42
PROVIDERS: ATTEND Family Medicine
DX: G50.0 Trigeminal neuralgia (principal); R90.82 White matter disease, unspecified
CPT/HCPCS: 70553; A9576

== ENCOUNTER 2021-05-21 16:13 | Emergency (ER) | payer OTHER ==
[~2021-05-21] VITALS: Ht 157.5 cm; Wt 52.3 kg
[~2021-05-21 16:13] MED LIST changes: -PROHANCE 279.3MG/ML 5ML VIAL As Ordered ONE
[2021-05-21] MEDS ORDERED: OMEP40CA4 PO (16:25)
[2021-05-21] MEDS ORDERED: AUGMENTIN 875 MG TAB PO ONE (16:50)
[2021-05-21] MEDS ORDERED: AUGM875T28 PO (17:00)
[2021-05-21 17:06] VITALS: BP 115/60
== END 2021-05-21 17:18 | disposition home or self-care (01) ==
LOC: M ED 16:13
DX: J00 Acute nasopharyngitis [common cold] (principal); M26.601 Right temporomandibular joint disorder, unspecified; J01.90 Acute sinusitis, unspecified; I10 Essential (primary) hypertension; F41.9 Anxiety disorder, unspecified; F33.9 Major depressive disorder, recurrent, unspecified; F17.200 Nicotine dependence, unspecified, uncomplicated; Z79.82 Long term (current) use of aspirin; Z79.899 Other long term (current) drug therapy; Z98.890 Other specified postprocedural states

== ENCOUNTER → 2021-08-10 | Outpatient (CLI) | payer OTHER ==
[~2021-08-10] MED LIST changes: +AUGM875T28 PO; +OMEP40CA4 PO
== END ==
LOC: M RAD 08:51
PROVIDERS: ATTEND Student in an Organized Health Care Education/Training Program
DX: Z72.0 Tobacco use (principal)

== ENCOUNTER 2021-10-24 22:53 | Emergency (ER) | payer OTHER ==
[~2021-10-24] VITALS: Ht 177.8 cm; Wt 82.2 kg
[2021-10-25] MEDS ORDERED: ACETAMINOPHEN 325 MG TAB PO ONE
[2021-10-25 00:11] LABS: BLOOD UREA NITROGEN 13 MG/DL (7-18); CALCIUM LEVEL 9.1 MG/DL (8.8-10.2); CARBON DIOXIDE LEVEL 27 MEQ/L (21-32); CHLORIDE LEVEL 107 MEQ/L (98-107); CREATININE FOR GFR 0.86 MG/DL (0.55-1.30); GLOMERULAR FILTRATION RATE > 60.0 (>45); GLUCOSE, FASTING 98 MG/DL (70-100); MAGNESIUM LEVEL 1.9 MG/DL (1.8-2.4); POTASSIUM SERUM 3.5 MEQ/L (3.5-5.1); SODIUM LEVEL 140 MEQ/L (136-145)
[2021-10-25 00:23] LABS: BASO # 0.1 10^3/uL (0.0-0.2); BASO % 1.1 % (0.0-1.0); EOS # 0.1 10^3/uL (0.0-0.5); HEMATOCRIT 38.3 % (36.0-47.0); HEMOGLOBIN 13.1 g/dl (12.0-15.5); LYMPH # 0.5 10^3/uL (1.5-5.0); LYMPH % 7.1 % (24.0-44.0); MEAN CORPUSCULAR HEMOGLOBIN 32.1 pg (27.0-33.0); MEAN CORPUSCULAR HGB CONC 34.2 g/dl (32.0-36.5); MEAN CORPUSCULAR VOLUME 93.9 fl (80.0-96.0); MONO # 0.9 10^3/uL (0.0-0.8); MONO % 13.2 % (2.0-8.0); NEUTROPHILS # 5.3 10^3/uL (1.5-8.5); NEUTROPHILS % 75.9 % (36.0-66.0); PLATELET COUNT, AUTOMATED 289 10^3/uL (150-450); RED BLOOD COUNT 4.08 10^6/uL (4.00-5.40)
[2021-10-25] MEDS ORDERED: FLUTISP (01:24)
[2021-10-25] MEDS ORDERED: VENTAER INH (01:24)
[2021-10-25] MEDS ORDERED: BENZ200C70 PO (01:24)
[2021-10-25 02:12] VITALS: BP 199/119
[2021-10-25] MEDS ORDERED: FLUTICASONE PROP 0.05% NASAL SPRAY 16 GM (FLONASE) NARES SCH (09:00)
== END 2021-10-25 03:28 | disposition home or self-care (01) ==
LOC: M ED 22:53
DX: U07.1 COVID-19 (principal); I10 Essential (primary) hypertension; E78.5 Hyperlipidemia, unspecified; F32.9 Major depressive disorder, single episode, unspecified; K21.9 Gastro-esophageal reflux disease without esophagitis; Z86.73 Personal history of transient ischemic attack (TIA), and cerebral infarction without residual deficits; Z79.82 Long term (current) use of aspirin; Z79.899 Other long term (current) drug therapy

== ENCOUNTER → 2022-05-09 | Outpatient (CLI) | payer OTHER ==
[~2022-05-09] MED LIST changes: +BENZ200C70 PO; +FLUTISP; +VENTAER INH
== END ==
LOC: M RAD 07:50
PROVIDERS: ATTEND Orthopaedic Surgery
DX: M48.061 Spinal stenosis, lumbar region without neurogenic claudication (principal); M47.816 Spondylosis without myelopathy or radiculopathy, lumbar region; M51.26 Other intervertebral disc displacement, lumbar region

== ENCOUNTER → 2022-08-31 | Outpatient (CLI) | payer MEDICARE, OTHER ==
[~2022-08-31] MED LIST changes: +FLUT50SP17; -FLUTISP
[2022-08-31 13:27] LABS: BASO # 0.1 10^3/uL (0.0-0.2); BASO % 1.1 % (0.0-1.0); EOS # 0.2 10^3/uL (0.0-0.5); EOS % 2.9 % (0.0-3.0); HEMATOCRIT 40.3 % (36.0-47.0); HEMOGLOBIN 13.3 g/dl (12.0-15.5); LYMPH # 1.5 10^3/uL (1.5-5.0); LYMPH % 22.7 % (24.0-44.0); MEAN CORPUSCULAR HEMOGLOBIN 31.5 pg (27.0-33.0); MEAN CORPUSCULAR VOLUME 95.5 fl (80.0-96.0); MONO # 0.5 10^3/uL (0.0-0.8); MONO % 8.1 % (2.0-8.0); NEUTROPHILS # 4.3 10^3/uL (1.5-8.5); NEUTROPHILS % 64.7 % (36.0-66.0); PLATELET COUNT, AUTOMATED 299 10^3/uL (150-450); RED BLOOD COUNT 4.22 10^6/uL (4.00-5.40); WHITE BLOOD COUNT 6.6 10^3/uL (4.0-10.0)
[2022-08-31 13:51] LABS: ALBUMIN 3.8 G/DL (3.2-5.2); ALKALINE PHOSPHATASE 128 U/L (46-116); ALT/SGPT 12 U/L (7.0-40); AST/SGOT 13 U/L (<34); BILIRUBIN,TOTAL 0.4 MG/DL (0.3-1.2); BLOOD UREA NITROGEN 20 MG/DL (9-23); CALCIUM LEVEL 9.4 MG/DL (8.3-10.6); CARBON DIOXIDE LEVEL 27 MMOL/L (20-31); CHLORIDE LEVEL 109 MMOL/L (98-107); CHOLESTEROL LEVEL 151 MG/DL (<200); CREATININE FOR GFR 0.83 MG/DL (0.55-1.30); GLOMERULAR FILTRATION RATE > 60.0 (>45); GLUCOSE, FASTING 88 MG/DL (74-106); HDL CHOLESTEROL 50.3 MG/DL (>40); LDL CHOLESTEROL 71.9 MG/DL (<100); NON-HDL-C 100.7 MG/DL; POTASSIUM SERUM 4.3 MMOL/L (3.5-5.1); SODIUM LEVEL 142 MMOL/L (136-145); TOTAL PROTEIN 6.5 G/DL (5.7-8.2); TRIGLYCERIDES LEVEL 144 MG/DL (<150)
[2022-08-31 13:55] LABS: FREE T4 0.88 NG/DL (0.89-1.76); THYROID STIMULATING HORMONE 0.819 uIU/ML (0.55-4.78)
[2022-08-31 13:56] LABS: TOTAL 25(OH) VITAMIN D 22.5 NG/ML (20.0-100.0)
== END ==
LOC: M RAD 12:22
PROVIDERS: ATTEND Student in an Organized Health Care Education/Training Program
DX: Z12.2 Encounter for screening for malignant neoplasm of respiratory organs (principal); F17.210 Nicotine dependence, cigarettes, uncomplicated; I10 Essential (primary) hypertension; R53.83 Other fatigue

== ENCOUNTER → 2023-05-23 | Outpatient (CLI) | payer MEDICARE, OTHER ==
[~2023-05-23] MED LIST changes: -FLUT50SP17; +FLUTISP
[2023-05-23 11:49] LABS: BASO # 0.1 10^3/uL (0.0-0.2); BASO % 1.5 % (0.0-1.0); EOS # 0.3 10^3/uL (0.0-0.5); EOS % 4.2 % (0.0-3.0); HEMOGLOBIN 13.7 g/dl (12.0-15.5); LYMPH # 1.2 10^3/uL (1.5-5.0); LYMPH % 19.6 % (24.0-44.0); MEAN CORPUSCULAR HEMOGLOBIN 32.1 pg (27.0-33.0); MEAN CORPUSCULAR HGB CONC 33.4 g/dl (32.0-36.5); MONO # 0.5 10^3/uL (0.0-0.8); MONO % 8.6 % (2.0-8.0); NEUTROPHILS # 3.9 10^3/uL (1.5-8.5); NEUTROPHILS % 65.6 % (36.0-66.0); PLATELET COUNT, AUTOMATED 317 10^3/uL (150-450); RED BLOOD COUNT 4.27 10^6/uL (4.00-5.40); WHITE BLOOD COUNT 5.9 10^3/uL (4.0-10.0)
[2023-05-23 12:19] LABS: ALBUMIN 3.8 G/DL (3.2-5.2); ALKALINE PHOSPHATASE 129 U/L (46-116); ALT/SGPT 24 U/L (7.0-40); AST/SGOT 16 U/L (<34); BILIRUBIN,TOTAL 0.6 MG/DL (0.3-1.2); BLOOD UREA NITROGEN 17 MG/DL (9-23); CALCIUM LEVEL 9.6 MG/DL (8.3-10.6); CARBON DIOXIDE LEVEL 26 MMOL/L (20-31); CHLORIDE LEVEL 109 MMOL/L (98-107); CREATININE FOR GFR 0.74 MG/DL (0.55-1.30); GLOMERULAR FILTRATION RATE > 60.0 (>45); GLUCOSE, FASTING 89 MG/DL (74-106); SODIUM LEVEL 141 MMOL/L (136-145); TOTAL PROTEIN 6.4 G/DL (5.7-8.2)
[2023-05-23 12:22] LABS: FOLATE 17.2 NG/ML (>5.4); THYROID STIMULATING HORMONE 1.422 uIU/ML (0.55-4.78)
[2023-05-23 12:23] LABS: FREE T4 0.95 NG/DL (0.89-1.76)
[2023-05-23 12:24] LABS: VITAMIN B12 LEVEL 511 PG/ML (211-911)
== END ==
LOC: M LAB 08:57
PROVIDERS: ATTEND Psychiatry & Neurology Neurology
DX: E53.8 Deficiency of other specified B group vitamins (principal); E07.9 Disorder of thyroid, unspecified; R41.3 Other amnesia

== ENCOUNTER → 2023-08-28 | Outpatient (CLI) | payer MEDICARE, OTHER ==
[2023-08-28 15:39] LABS: BASO # 0.1 10^3/uL (0.0-0.2); BASO % 1.3 % (0.0-1.0); EOS # 0.3 10^3/uL (0.0-0.5); EOS % 4.2 % (0.0-3.0); HEMATOCRIT 38.2 % (36.0-47.0); HEMOGLOBIN 12.9 g/dl (12.0-15.5); LYMPH # 1.8 10^3/uL (1.5-5.0); LYMPH % 28.1 % (24.0-44.0); MEAN CORPUSCULAR HEMOGLOBIN 31.7 pg (27.0-33.0); MEAN CORPUSCULAR HGB CONC 33.8 g/dl (32.0-36.5); MEAN CORPUSCULAR VOLUME 93.9 fl (80.0-96.0); MONO # 0.7 10^3/uL (0.0-0.8); MONO % 10.9 % (2.0-8.0); NEUTROPHILS # 3.4 10^3/uL (1.5-8.5); PLATELET COUNT, AUTOMATED 277 10^3/uL (150-450); RED BLOOD COUNT 4.07 10^6/uL (4.00-5.40); WHITE BLOOD COUNT 6.2 10^3/uL (4.0-10.0)
[2023-08-28 15:40] LABS: APPEARANCE, URINE CLEAR (CLEAR); BACTERIA, URINE AUTO 2+ (NEGATIVE); BILIRUBIN, URINE AUTO NEGATIVE (NEGATIVE); BLOOD, URINE BLOOD NEGATIVE (NEGATIVE); COLOR, URINE YELLOW (YELLOW); GLUCOSE, URINE (UA) AUTO NEGATIVE (NEGATIVE); KETONE, URINE AUTO NEGATIVE (NEGATIVE); LEUKOCYTE ESTERASE, URINE AUTO NEGATIVE (NEGATIVE); MUCUS, URINE SMALL (NEGATIVE); NITRITE, URINE AUTO NEGATIVE (NEGATIVE); PROTEIN, URINE AUTO NEGATIVE (NEGATIVE); RBC, URINE AUTO 1 /HPF (0-3); SPECIFIC GRAVITY URINE AUTO 1.021 (1.002-1.035); SQUAMOUS EPITHELIAL CELL UR AU 1 /HPF (0-6); UROBILINOGEN, URINE AUTO 0.2 mg/dL (0.0-2.0); WBC, URINE AUTO 1 /HPF (0-3)
[2023-08-28 16:00] LABS: INR 0.95; PARTIAL THROMBOPLASTIN TIME 24.7 SECONDS (24.8-34.2); PROTHROMBIN TIME 12.4 SECONDS (12.5-14.5)
== END ==
LOC: M LAB 14:37
PROVIDERS: ATTEND Podiatrist
DX: T84.84XA Pain due to internal orthopedic prosthetic devices, implants and grafts, initial encounter (principal); Y83.1 Surgical operation with implant of artificial internal device as the cause of abnormal reaction of the patient, or of later complication, without mention of misadventure at the time of the procedure; M20.20 Hallux rigidus, unspecified foot; M79.671 Pain in right foot

== ENCOUNTER → 2023-09-05 | Outpatient (CLI) | payer MEDICARE | LOC: M WHC 13:03 | PROVIDERS: ATTEND Physician Assistant | DX: Z12.31 Encounter for screening mammogram for malignant neoplasm of breast (principal); Z78.0 Asymptomatic menopausal state; M85.88 Other specified disorders of bone density and structure, other site ==

== ENCOUNTER → 2023-10-08 | Outpatient (CLI) | payer MEDICARE ==
[2023-10-08 11:16] LABS: BASO # 0.1 10^3/uL (0.0-0.2); BASO % 1.4 % (0.0-1.0); EOS # 0.2 10^3/uL (0.0-0.5); EOS % 3.2 % (0.0-3.0); HEMATOCRIT 40.2 % (36.0-47.0); HEMOGLOBIN 13.5 g/dl (12.0-15.5); LYMPH # 1.3 10^3/uL (1.5-5.0); LYMPH % 21.6 % (24.0-44.0); MEAN CORPUSCULAR HEMOGLOBIN 31.9 pg (27.0-33.0); MEAN CORPUSCULAR HGB CONC 33.6 g/dl (32.0-36.5); MONO # 0.4 10^3/uL (0.0-0.8); MONO % 7.5 % (2.0-8.0); NEUTROPHILS # 3.9 10^3/uL (1.5-8.5); NEUTROPHILS % 65.6 % (36.0-66.0); PLATELET COUNT, AUTOMATED 285 10^3/uL (150-450); RED BLOOD COUNT 4.23 10^6/uL (4.00-5.40); WHITE BLOOD COUNT 5.9 10^3/uL (4.0-10.0)
[2023-10-08 11:28] LABS: APPEARANCE, URINE HAZY (CLEAR); BACTERIA, URINE AUTO 1+ (NEGATIVE); BILIRUBIN, URINE AUTO NEGATIVE (NEGATIVE); BLOOD, URINE BLOOD NEGATIVE (NEGATIVE); CALCIUM OXALATE CRYSTALS SMALL; COLOR, URINE YELLOW (YELLOW); GLUCOSE, URINE (UA) AUTO NEGATIVE (NEGATIVE); KETONE, URINE AUTO NEGATIVE (NEGATIVE); LEUKOCYTE ESTERASE, URINE AUTO NEGATIVE (NEGATIVE); MUCUS, URINE SMALL (NEGATIVE); NITRITE, URINE AUTO NEGATIVE (NEGATIVE); PROTEIN, URINE AUTO NEGATIVE (NEGATIVE); RBC, URINE AUTO 14 /HPF (0-3); SPECIFIC GRAVITY URINE AUTO 1.026 (1.002-1.035); SQUAMOUS EPITHELIAL CELL UR AU 1 /HPF (0-6); UROBILINOGEN, URINE AUTO 0.2 mg/dL (0.0-2.0); WBC, URINE AUTO 1 /HPF (0-3)
[2023-10-08 11:31] LABS: INR 0.95; PARTIAL THROMBOPLASTIN TIME 24.9 SECONDS (24.8-34.2); PROTHROMBIN TIME 12.4 SECONDS (12.5-14.5)
== END ==
LOC: M LAB 09:44
PROVIDERS: ATTEND Podiatrist
DX: M79.671 Pain in right foot (principal); T84.84XA Pain due to internal orthopedic prosthetic devices, implants and grafts, initial encounter; M20.20 Hallux rigidus, unspecified foot; Y83.1 Surgical operation with implant of artificial internal device as the cause of abnormal reaction of the patient, or of later complication, without mention of misadventure at the time of the procedure

== ENCOUNTER → 2023-10-10 | Outpatient (REF) | payer MEDICARE, OTHER ==
[2023-10-10 12:53] LABS: APPEARANCE, URINE CLEAR (CLEAR); BACTERIA, URINE AUTO 2+ (NEGATIVE); BILIRUBIN, URINE AUTO NEGATIVE (NEGATIVE); BLOOD, URINE BLOOD NEGATIVE (NEGATIVE); COLOR, URINE YELLOW (YELLOW); GLUCOSE, URINE (UA) AUTO NEGATIVE (NEGATIVE); KETONE, URINE AUTO NEGATIVE (NEGATIVE); LEUKOCYTE ESTERASE, URINE AUTO NEGATIVE (NEGATIVE); NITRITE, URINE AUTO NEGATIVE (NEGATIVE); PROTEIN, URINE AUTO NEGATIVE (NEGATIVE); RBC, URINE AUTO 2 /HPF (0-3); SPECIFIC GRAVITY URINE AUTO 1.014 (1.002-1.035); SQUAMOUS EPITHELIAL CELL UR AU 1 /HPF (0-6); UROBILINOGEN, URINE AUTO 0.2 mg/dL (0.0-2.0); WBC, URINE AUTO 1 /HPF (0-3)
== END ==
LOC: M SFHCLERA 11:27
PROVIDERS: ATTEND Physician Assistant
DX: R31.29 Other microscopic hematuria (principal)

== ENCOUNTER 2024-08-31 09:24 | Emergency (ER) | payer MEDICARE, OTHER ==
[~2024-08-31] VITALS: Ht 157.5 cm; Wt 49.4 kg
[~2024-08-31 09:24] MED LIST changes: +GABA-1172; -GABA-282
[2024-08-31] MEDS ORDERED: ACET-683 PO (09:43)
[2024-08-31] MEDS: IBUPROFEN 600MG TAB PO ONE (09:59)
[2024-08-31] MEDS: AUGMENTIN 875 MG TAB PO ONE (09:59)
[2024-08-31] MEDS: LIDOCAINE 1% MDV 20ML VIAL SC ONE (10:25)
[2024-08-31] MEDS: AMPICILLIN SOD/SULBACTAM SOD 3 GM in DEXTROSE 5% (D5W) MINI-BAG PLU 100 ML IV ONE (11:02)
[2024-08-31] MEDS: MORPHINE 2 MG/ML 1ML VIAL IV ONE (11:02)
[2024-08-31] MEDS ORDERED: AMOX875T2 PO (12:39)
[2024-08-31 12:45] VITALS: BP 115/53; TEMP 98.2; O2SAT 98
== END 2024-08-31 12:58 | disposition home or self-care (01) ==
LOC: M ED 09:24
DX: S62.327B Displaced fracture of shaft of fifth metacarpal bone, left hand, initial encounter for open fracture (principal); S62.325B Displaced fracture of shaft of fourth metacarpal bone, left hand, initial encounter for open fracture; S61.214A Laceration without foreign body of right ring finger without damage to nail, initial encounter; S61.412A Laceration without foreign body of left hand, initial encounter; W54.0XXA Bitten by dog, initial encounter; I10 Essential (primary) hypertension; F17.200 Nicotine dependence, unspecified, uncomplicated; Y92.009 Unspecified place in unspecified non-institutional (private) residence as the place of occurrence of the external cause; Y93.89 Activity, other specified; Y99.9 Unspecified external cause status; Z79.2 Long term (current) use of antibiotics; Z79.82 Long term (current) use of aspirin; Z79.02 Long term (current) use of antithrombotics/antiplatelets; Z79.1 Long term (current) use of non-steroidal anti-inflammatories (NSAID); Z79.899 Other long term (current) drug therapy
CPT/HCPCS: 73130; 73140; 96374; 96375; 99284; J0295

== ENCOUNTER 2024-09-02 08:38 | Day surgery (SDC) | payer MEDICARE ==
[~2024-09-02] VITALS: Ht 157.5 cm; Wt 48.0 kg
[~2024-09-02 08:38] MED LIST changes: +ACET-683 PO; +AMOX875T2 PO
[2024-09-02] MEDS ORDERED: LIDOCAINE 2% 100MG/5ML SDV (FOR ANES.) As Ordered ONE (10:18)
[2024-09-02] MEDS ORDERED: propofoL 200 MG/20 ML VIAL As Ordered ONE (10:18)
[2024-09-02] MEDS ORDERED: ONDANSETRON 4MG 2ML VIAL As Ordered ONE (10:19)
[2024-09-02] MEDS ORDERED: fentaNYL 100 MCG/2 ML INJECTION As Ordered ONE (10:22)
[2024-09-02] MEDS: fentaNYL 100 MCG/2 ML INJECTION IV PRN (10:53)
[2024-09-02] MEDS: MIDAZOLAM INJ 2MG/2ML VIAL IV PRN (10:53)
[2024-09-02] MEDS: dexAMETHasone 10MG/1ML VIAL PRES.FREE PN ONE (10:54)
[2024-09-02] MEDS: ROPIvacaine 0.5% 30ML VIAL PN ONE (10:54)
[2024-09-02] MEDS: ceFAZolin SODIUM 2 GM VIAL As Ordered ONE (11:13)
[2024-09-02] MEDS ORDERED: MIDAZOLAM INJ 2MG/2ML VIAL As Ordered ONE (12:24)
[2024-09-02 12:51] VITALS: BP 104/55; TEMP 96.9; O2SAT 94
== END 2024-09-02 13:31 | disposition home or self-care (01) ==
LOC: M SDC 08:38
PROVIDERS: ATTEND Orthopaedic Surgery
DX: S62.305A Unspecified fracture of fourth metacarpal bone, left hand, initial encounter for closed fracture (principal); S62.307A Unspecified fracture of fifth metacarpal bone, left hand, initial encounter for closed fracture; W54.0XXA Bitten by dog, initial encounter; I10 Essential (primary) hypertension; K21.9 Gastro-esophageal reflux disease without esophagitis; Z79.82 Long term (current) use of aspirin; Z79.899 Other long term (current) drug therapy
CPT/HCPCS: 26615; 76000; C1713; J0665; J0690; J1100; J2250; J2795; J3010

== ENCOUNTER → 2024-09-10 | Outpatient (CLI) | payer MEDICARE | LOC: M SOG 08:33 | PROVIDERS: ATTEND Orthopaedic Surgery | DX: S62.305D Unspecified fracture of fourth metacarpal bone, left hand, subsequent encounter for fracture with routine healing (principal); S62.307D Unspecified fracture of fifth metacarpal bone, left hand, subsequent encounter for fracture with routine healing; M79.89 Other specified soft tissue disorders ==

== ENCOUNTER → 2024-10-03 | Outpatient (CLI) | payer MEDICARE | LOC: M SOG 07:28 | PROVIDERS: ATTEND Physician Assistant | DX: S62.305D Unspecified fracture of fourth metacarpal bone, left hand, subsequent encounter for fracture with routine healing (principal); S62.307D Unspecified fracture of fifth metacarpal bone, left hand, subsequent encounter for fracture with routine healing; M85.842 Other specified disorders of bone density and structure, left hand; M19.042 Primary osteoarthritis, left hand ==

== ENCOUNTER → 2025-01-13 | Outpatient (CLI) | payer MEDICARE, MEDICAID ==
[2025-01-13 08:19] LABS: BASO # 0.1 10^3/uL (0.0-0.2); BASO % 1.2 % (0.0-1.0); EOS # 0.2 10^3/uL (0.0-0.5); EOS % 2.5 % (0.0-3.0); LYMPH # 1.2 10^3/uL (1.5-5.0); LYMPH % 17.4 % (24.0-44.0); MONO # 0.7 10^3/uL (0.0-0.8); MONO % 9.5 % (2.0-8.0); NEUTROPHILS # 4.7 10^3/uL (1.5-8.5); NEUTROPHILS % 68.8 % (36.0-66.0); PLATELET COUNT, AUTOMATED 324 10^3/uL (150-450)
[2025-01-13 08:46] LABS: ALT/SGPT 17.0 U/L (7.0-40); AST/SGOT 17.0 U/L (<34); CALCIUM LEVEL 9.5 MG/DL (8.3-10.6); CARBON DIOXIDE LEVEL 28.0 MMOL/L (20-31); CHLORIDE LEVEL 107.0 MMOL/L (98-107); CHOLESTEROL LEVEL 162.0 MG/DL (<200); CHOLESTEROL RISK RATIO 3.22 (<5); CREATININE FOR GFR 0.78 MG/DL (0.55-1.30); GLOMERULAR FILTRATION RATE 83.2 (>45); LDL CHOLESTEROL 77.1 MG/DL (<100); MAGNESIUM LEVEL 1.8 MG/DL (1.8-2.4); NON-HDL-C 111.7 MG/DL; POTASSIUM SERUM 4.0 MMOL/L (3.5-5.1); SODIUM LEVEL 146.0 MMOL/L (136-145); TRIGLYCERIDES LEVEL 173.0 MG/DL (<150)
[2025-01-13 08:50] LABS: TOTAL 25(OH) VITAMIN D 30.9 NG/ML (20.0-100.0)
[2025-01-13 09:44] LABS: ESTIMATED AVERAGE GLUCOSE 114.0 MG/DL (60-110)
== END ==
LOC: M RAD 07:13
PROVIDERS: ATTEND Family Medicine
DX: Z00.00 Encounter for general adult medical examination without abnormal findings (principal); R25.2 Cramp and spasm; I10 Essential (primary) hypertension; E78.2 Mixed hyperlipidemia; E55.9 Vitamin D deficiency, unspecified; Z12.2 Encounter for screening for malignant neoplasm of respiratory organs; F17.210 Nicotine dependence, cigarettes, uncomplicated; J43.9 Emphysema, unspecified; I25.10 Atherosclerotic heart disease of native coronary artery without angina pectoris; Z79.899 Other long term (current) drug therapy

== ENCOUNTER → 2025-02-23 | Outpatient (CLI) | payer MEDICARE, MEDICAID ==
[~2025-02-23] MED LIST changes: +CARB-19 PO; -CARB1TAB20 PO
== END ==
LOC: M PLAIMG 14:23
PROVIDERS: ATTEND Neurological Surgery
DX: R26.89 Other abnormalities of gait and mobility (principal); D18.09 Hemangioma of other sites; M47.812 Spondylosis without myelopathy or radiculopathy, cervical region